=== PATIENT | female | born 1950 | race Caucasian/White ===

== ENCOUNTER 2017-09-04 07:34 | Emergency (ER) | payer OTHER ==
[2017-09-04 07:52] VITALS: BP 152/89
--- NOTE | 2017-09-04 09:21 | RAD ---
INDICATION: Left knee injury. TECHNIQUE: 4 views of the left knee were obtained. FINDINGS: The bones are normal alignment. There is a small joint effusion present. No fracture is seen. Joint spaces appear maintained. IMPRESSION: SMALL JOINT EFFUSION, OTHERWISE UNREMARKABLE STUDY.
--- NOTE | 2017-09-04 13:01 | UC ---
Fede Bloom Natalie, scribed for Bree Banerjee MD on 09/04/17 at 0952 . Knee Pain HPI - HPI Summary HPI Summary: The patient is a 66 y/o F presenting to [facility] c/o pain and swelling in the left knee starting three days ago. The day previous to her symptoms starting she did a lot of walking at the [place] [employer]. She woke up the next morning on 09/02 with aching pain in her knee, which she rates 8/10 in severity. She denies locking and giving out of the knee joint. The pain is aggravated by ambulation and extension is alleviated by rest. She has taken Tylenol to some relief. She has not gotten any XRs taken, and she has not gone to PT because she hasn't had pain like this in her knee before. She denies any recent or past tick bites. She takes omeprazole for gastritis. She has hx of adenocarcincoma. She has surgical hx of a tonsillectomy. She does not have any allergies. - History of Current Complaint Chief Complaint: UCLowerExtremity Stated Complaint: KNEE PAIN Time Seen by Provider: 09/04/17 08:29 Hx Obtained From: Patient Onset/Duration: Sudden Onset, Lasting Days - since 09/01, Still Present Severity Initially: Mild Severity Currently: Moderate Pain Intensity: 8 Pain Scale Used: 0-10 Numeric Character: Aching Aggravating Factor(s): Other - ambulation and extension Alleviating Factor(s): Rest Associated Signs And Symptoms: Positive: Swelling Able to Bear Weight: Yes - Allergies/Home Medications Allergies/Adverse Reactions: Allergies Allergy/AdvReac Type Severity Reaction Status Date / Time No Known Allergies Allergy Verified 09/04/17 07:52 PMH/Surg Hx/FS Hx/Imm Hx Other Endocrine History: NEGATIVE: diabetes Other Cardiovascular History: negative Other Respiratory History: negative Other GI/ History: adenocarcinoma, gastritis Other Neurological History: negative Other Psychological History: negative Cancer History: Other - gastric cancer Other Cancer History: gastric cancer - Surgical History Surgical History: Yes Surgery Procedure, Year, and Place: tonsils - Family History Known Family History: Positive: Hypertension - Social History Alcohol Use: Weekly Substance Use Type: None Smoking Status (MU): Former Smoker Have You Smoked in the Last Year: No When Did the Patient Quit Smoking/Using Tobacco: over 30 yrs ago - Immunization History Most Recent Tetanus Shot: uncertain Review of Systems Skin: Negative Eyes: Negative ENT: Negative Respiratory: Negative Cardiovascular: Negative, Other - NEGATIVE: CP Gastrointestinal: Negative Genitourinary: Negative Motor: Decreased ROM - left knee Musculoskeletal: Arthralgia - left knee, Other: - POSITIVE: pain in left knee with swelling Neurological: Negative Psychological: Negative Is Patient Immunocompromised?: No All Other Systems Reviewed And Are Negative: Yes Physical Exam - Summary Physical Exam Summary: Appearance: Well-Appearing, No Pain Distress, Well-Nourished Eyes: conjunctiva clear, no discharge ENT: Hearing grossly normal, no muffled/hoarse voice. Neck: Normal, Supple Respiratory/Lung Sounds: Lungs clear, Normal breath sounds, No respiratory distress, No accessory muscle use Cardiovascular: RRR, No murmur Abdomen: Nontender, Soft, no guarding, not distended Bowel Sounds: Present Musculoskeletal: slightly antalgic gait. Left knee: FROM in left knee with painful extension, medial joint line tenderness, mild effusion Gianna test could not be done due to patient's inability to relax. Anterior and posterior drawer test negative. pain with valgus stress at 30 deg. Neurological: Alert, muscle tone normal Psychiatric:Normal, age appropriate behavior Skin: Normal, Warm, Dry, Normal color Triage Information Reviewed: Yes Vital Signs: Initial Vital Signs Temp 98.2 F 09/04/17 07:48 Pulse 105 09/04/17 07:48 Resp 18 09/04/17 07:48 BP 152/89 09/04/17 07:48 Pulse Ox 99 09/04/17 07:48 Vital Signs Reviewed: Yes Diagnostics - Radiology Left Knee XR Xray Interpretation: No Acute Changes - Small joint effusion, otherwise unremarkable study. [facility] physician has reviewed this report. Radiology Interpretation Completed By: Radiologist Knee Pain Course/Dx - Course Course Of Treatment: The patient is a 66 y/o F presenting to [facility] c/o left knee pain and swelling starting three days ago after walking a lot the day before. She denies locking up and giving out of the knee. She has taken Tylenol for the pain with some relief. She has not had XRs or gone to PT for the knee pain. She has not had a recent tick pain. BP noted and advised to follow up with PCP. Medications reviewed. No allergies noted. In the [facility], Left Knee XR is negative for any fracture, and only mild effusion was visible. Patient will be discharged home with instructions for knee pain. She is advised to take Tylenol as needed and apply ice for 15 minutes at a time. She is advised to follow up with her PCP in 2 days and consult with orthopedist Dr. Roper for physical therapy. Patient is agreeable with this plan. - Differential Dx/Diagnosis Provider Diagnoses: knee pain. Left knee pain. Left knee arthritis Discharge - Sign-Out/Discharge Documenting (check all that apply): Discharge/Admit/Transfer - Pt will be discharged home. - Discharge Plan Condition: Stable Disposition: HOME Patient Education Materials: Knee Pain (ED) Referrals: Judson Wisdom MD [Medical Doctor] - 1 Week Reyna Vigil MD [Primary Care Provider] - 2 Weeks Additional Instructions: Tylenol for pain as needed. Ice as needed, 15 min at a time. Start physical therapy. Please follow up with orthopedics for the consult next week. Return to Urgent care / ER if symptoms get worse. - Billing Disposition and Condition Condition: STABLE Disposition: Home The documentation as recorded by the Fede howard Natalie accurately reflects the service I personally performed and the decisions made by , Bree Banerjee MD.
== END 2017-09-04 09:38 | disposition home or self-care (01) ==
LOC: UCEAST 07:34
DX: M13.862 Other specified arthritis, left knee (principal); M25.562 Pain in left knee; Z87.891 Personal history of nicotine dependence
CPT/HCPCS: 99211; G0463

== ENCOUNTER 2018-02-10 13:14 | Emergency (ER) | payer OTHER ==
[2018-02-10 13:23] VITALS: BP 158/94
--- NOTE | 2018-02-10 13:53 | UC ---
Ear Complaint HPI - HPI Summary HPI Summary: 67 y/o female presents to the urgent care c/o RT ear pain since yesterday. Pain is 8/10. Pt states she feels her ear is clogged w/ decrease hearing. Pt states Hx of recurrent ear infections in the past. Pt denies fever, tinnitus, dizziness, SOB, FRANCIS, chest pain, abdominal pain,N/V/d. Pt has Hx of GERD and can' t take NSAIDs - History of Current Complaint Chief Complaint: UCEar Stated Complaint: EAR PAIN Time Seen by Provider: 02/10/18 13:49 Hx Obtained From: Patient Onset/Duration: Gradual Onset, Lasting Days - 1 day, Still Present, Worse Since - today Severity Initially: Mild Severity Currently: Moderate Pain Intensity: 8 Pain Scale Used: 0-10 Numeric Aggravating Factors: Nothing Alleviating Factors: Nothing Associated Signs/Symptoms: Positive: Hearing Loss - Allergies/Home Medications Allergies/Adverse Reactions: Allergies Allergy/AdvReac Type Severity Reaction Status Date / Time No Known Allergies Allergy Verified 02/10/18 13:24 PMH/Surg Hx/FS Hx/Imm Hx Previously Healthy: Yes GI/ History: Gastroesophageal Reflux Other Cancer History: lymphoma - Surgical History Surgical History: Yes Surgery Procedure, Year, and Place: tonsils - Family History Known Family History: Positive: Hypertension - Social History Occupation: Retired Lives: With Family Alcohol Use: Weekly Substance Use Type: None Smoking Status (MU): Former Smoker Have You Smoked in the Last Year: No When Did the Patient Quit Smoking/Using Tobacco: over 30 yrs ago - Immunization History Most Recent Tetanus Shot: uncertain Review of Systems All Other Systems Reviewed And Are Negative: Yes Constitutional: Positive: Negative Skin: Positive: Negative Eyes: Positive: Negative ENT: Positive: Ear Ache - RT ear pain Respiratory: Positive: Negative Cardiovascular: Positive: Negative Gastrointestinal: Positive: Negative Genitourinary: Positive: Negative Motor: Positive: Negative Neurovascular: Positive: Negative Musculoskeletal: Positive: Negative Neurological: Positive: Negative Psychological: Positive: Negative Is Patient Immunocompromised?: No Physical Exam - Summary Physical Exam Summary: Vital signs: reviewed General: well developed, well nourished female sitting in the examining table w/ o any apparent distress Skin: [place], warm and dry, no evidence of atopic dermatitis, psoriasis, seborrhea. HEENT: -Head: atraumatic, non tender; no scalp dermatitis. -Eyes: sclera and conjunctiva clear, PERRLA, EOMI -Ears: no pre- or postauricular lymphadenopathy or erythema; RT external ear canal clear, Rt TM injected w/ erythema and yellowish discahrge, LF external ear canal clear and LF TM WNL. No perforation. -Nose/Face: erythematous and edematous nasal mucosa with clear rhinorrhea, no frontal or maxillary sinus tender to palpation. -Mouth/Throat: Mucous membrane moist, posterior pharynx clear, no erythema or exudates. Neck: supple, FROM, nontender, no lymphadenopathy, no meningismus. Chest: Clear to auscultation, normal breath sounds Abd: soft, Bowel sounds active, Nontender. Back: no spinal or CVAT Neuro: A&O x4, GCS 15, no focal neuro deficits, normal behavior for age. Triage Information Reviewed: Yes Vital Signs: Initial Vital Signs Temp 98.5 F 02/10/18 13:21 Pulse 96 02/10/18 13:21 Resp 16 02/10/18 13:21 BP 158/94 02/10/18 13:21 Pulse Ox 99 02/10/18 13:21 Ear Complaint Course/Dx - Course Course Of Treatment: 67 y/o female presents to the urgent care c/o RT ear pain since yesterday. Pain is 8/10. Pt states she feels her ear is clogged w/ decrease hearing. Pt states Hx of recurrent ear infections in the past. Pt denies fever, tinnitus, dizziness, SOB, FRANCIS, chest pain, abdominal pain,N/V/d. Pt has Hx of GERD and can't take NSAIDs. Hx obtained. Pt w/ RT otitis media on examination. Pt given Tylenol PO by the nurse to alleviate symptoms. Pt Rx Amoxicillin PO and Tylenol as directed below. If symptoms do not improve or worsen to return to the urgent care or f/u with PCP for further management.Pt's BP is elevated today advised to decrease salt in diet, monitor BP and f/u with PCP for further management. PT understood and agreed with D/C instructions. - Differential Dx/Diagnosis Differential Diagnosis/HQI/PQRI: Cerumen Impaction, Otitis Externa, Otitis Media , Perforated TM, URI Provider Diagnosis: Right otitis media, Otalgia, Elevated BP without diagnosis of hypertension Discharge - Sign-Out/Discharge Documenting (check all that apply): Patient Departure - d/c home All imaging exams completed and their final reports reviewed: No Studies - Discharge Plan Condition: Stable Disposition: HOME Prescriptions: Acetaminophen TAB* [Tylenol TAB*] 650 mg PO Q6H PRN #30 tab PRN Reason: otalgia Amoxicillin PO (*) [Amoxicillin 875 MG (*)] 875 mg PO BID #14 tab Patient Education Materials: Ear Infection (ED), Low-Sodium Diet (ED) Referrals: Reyna Vigil MD [Primary Care Provider] - 3 Days Additional Instructions: 1- Please take the full course of the antibiotic to avoid resistance. Please take yogurts w/ probiotics to protect your GI system 2-Please take Tylenol PO q6-8hrs prn as instructed after meals to alleviate pain and swelling. Increase fluid intake, eat well, rest and avoid strenuous exercise 3-If symptoms do not improve or worsen please return to the urgent care or f/u with your PCP in 3 days for further evaluation and treatment. 4- Your BP is elevated today. please decrease salt in your diet, monitor BP and if it continues to be elevated please f/u with your PCP for further management - Billing Disposition and Condition Condition: STABLE Disposition: Home
[2018-02-10] MEDS ORDERED: Acetaminophen TAB* 325 MG PO ONE (13:58)
== END 2018-02-10 14:12 | disposition home or self-care (01) ==
LOC: UCEAST 13:14
DX: H66.91 Otitis media, unspecified, right ear (principal); H92.01 Otalgia, right ear; R03.0 Elevated blood-pressure reading, without diagnosis of hypertension; Z87.891 Personal history of nicotine dependence
CPT/HCPCS: 99212; A9270-GY; G0463

== ENCOUNTER 2022-09-29 11:56 | Observation (INO) ==
[2022-09-29 13:19] LABS: ABS Basophils 0.1 10^3/uL (0.0-0.1); ABS Eosinophils 0.1 10^3/uL (0.0-0.5); ABS Lymphocytes 0.2 10^3/uL (1.0-4.8); ABS Neutrophils 7.8 10^3/uL (1.5-7.6); ABS Nucleated RBC 0.01 10^3/ul; Eosinophil % 0.6 %; Hematocrit 28.7 % (35-45); Lymphocyte % 2.1 %; Mean Corpuscular Hemoglobin 35.3 pg (27-33); Mean Corpuscular Volume 100.8 fL (80-97); Mean Platelet Volume 7.8 fL (7.5-11.2); Nucleated Red Blood Cells % 0.1 /100 WBC (0.0-0.4); Platelet Count 257 10^3/uL (150-450); Red Blood Count 2.84 10^6/uL (3.63-4.92); White Blood Count 9.1 10^3/uL (3.8-11.8)
[2022-09-29 13:22] LABS: Venous Bicarbonate HCO3 23.9 mmol/L (24-28)
[2022-09-29 13:33] LABS: Activated Partial Thrombo Time 26.9 seconds (26.0-38.0); INR 1.21 (0.88-1.18)
[2022-09-29 13:37] LABS: Albumin 2.7 g/dL (3.2-5.2); Albumin/Globulin Ratio 1.4 (1-3); C Reactive Protein 43.86 mg/L (<8.01); Creatinine, Serum 0.84 mg/dL (0.51-0.95); Globulin 1.9 g/dL (2-4); Magnesium 1.2 mg/dL (1.9-2.7); Potassium 3.4 mmol/L (3.5-5.0); Total Bilirubin 0.5 mg/dL (0.2-1.0); Total Protein 4.6 g/dL (6.4-8.9); eGFR CKD-EPI 74.2 (>60)
[2022-09-29] MEDS ORDERED: Iohexol 350 (CONTRAST) 500 ML MDV IV ONE (14:11)
[2022-09-29] MEDS ORDERED: Magnesium Sulf 4 GM/100 ML IV 4,000 MG/100 ML BAG IVPB ONE (14:13)
[2022-09-29 14:21] LABS: Urine Appearance Clear; Urine Bilirubin Negative (Negative); Urine Blood Negative (Negative); Urine Color Yellow; Urine Glucose Negative (Negative); Urine Ketones Negative (Negative); Urine Nitrite Negative (Negative); Urine Protein Negative (Negative); Urine Specific Gravity 1.016 (1.002-1.030); Urine Urobilinogen Negative (Negative)
[2022-09-29 14:46] LABS: High Sensitivity Troponin 1 Hr 111 pg/mL (<15)
[2022-09-29] MEDS ORDERED: Piperacillin/Tazobac 3.375 BAG 3.375 GM/100 ML BAG IV ONE (17:06)
[2022-09-29] MEDS ORDERED: Furosemide 20 mg/2 ml IV VIAL IV SLOW PU ONE (17:08)
[2022-09-29] MEDS ORDERED: Al Hydrox/Mg Hydrox/Simet LIQ 30 ML UDC PO PRN (17:11)
[2022-09-29] MEDS ORDERED: Morphine ORAL CONCENTRATE 5 MG/0.25 ML ORAL.SYRIN PO PRN (17:11)
[2022-09-29] MEDS ORDERED: Triamcinolone 0.5% OINT 1 TUBE TOPICAL PRN (17:36)
[2022-09-29] MEDS ORDERED: Zosyn per Pharmacy NOTE FOLLOW UP SCH (18:00)
[2022-09-29] MEDS: Enoxaparin 40 MG/0.4 ML SYR SUBCUT SCH (18:28)
[2022-09-29] MEDS: Azithromycin 500 mg/250 ml NS 500 MG/250 ML BAG IVPB SCH (18:28)
[2022-09-29] MEDS: ZOSYN 3.375 GM Q8H per EXTENDED INFUSION IV SCH (22:29)
[2022-09-30] MEDS: ZOSYN 3.375 GM Q8H per EXTENDED INFUSION IV SCH ×3 (05:53→22:07)
[2022-09-30 06:09] LABS: ABS Basophils 0.1 10^3/uL (0.0-0.1); ABS Eosinophils 0.1 10^3/uL (0.0-0.5); ABS Lymphocytes 0.2 10^3/uL (1.0-4.8); ABS Monocytes 1.1 10^3/uL (0.0-0.9); ABS Neutrophils 6.5 10^3/uL (1.5-7.6); ABS Nucleated RBC 0.01 10^3/ul; Eosinophil % 1.3 %; Hematocrit 25.3 % (35-45); Hemoglobin 9.1 g/dL (11.5-14.3); Lymphocyte % 2.4 %; Mean Corpuscular Volume 99.9 fL (80-97); Mean Platelet Volume 7.7 fL (7.5-11.2); Nucleated Red Blood Cells % 0.1 /100 WBC (0.0-0.4); Platelet Count 264 10^3/uL (150-450); Red Blood Count 2.53 10^6/uL (3.63-4.92); Red Cell Distribution Width 17.9 % (12-17)
[2022-09-30 06:30] LABS: Calcium 9.1 mg/dL (8.6-10.3); Creatinine, Serum 0.91 mg/dL (0.51-0.95); Magnesium 1.7 mg/dL (1.9-2.7); Potassium 3.2 mmol/L (3.5-5.0); eGFR CKD-EPI 67.4 (>60)
[2022-09-30] MEDS ORDERED: Magnesium Sulfate 2 gm BAG 2 GM/50 ML BAG IVPB ONE (10:18)
[2022-09-30] MEDS ORDERED: Potassium Chlor 20 meq TAB.ER PO ONE (10:20)
[2022-09-30] MEDS ORDERED: Furosemide 20 mg/2 ml IV VIAL IV SLOW PU ONE (10:57)
[2022-09-30 11:38] LABS: Total Protein 4.2 g/dL (6.4-8.9)
[2022-09-30 15:58] LABS: Body Fluid Appearance Cloudy; Body Fluid Color Yellow; Body Fluid Source Pleural Fluid
[2022-09-30 16:21] LABS: Body Fluid WBC 840 /mcL
[2022-09-30 16:52] LABS: Body Fluid Mono 16 %; Body Fluid Other Cells 44; Body Fluid Total Cells Counted 200
[2022-09-30] MEDS: Enoxaparin 40 MG/0.4 ML SYR SUBCUT SCH (17:38)
[2022-09-30] MEDS: Azithromycin 500 mg/250 ml NS 500 MG/250 ML BAG IVPB SCH (19:36)
[2022-10-01] MEDS: ZOSYN 3.375 GM Q8H per EXTENDED INFUSION IV SCH (05:58)
[2022-10-01 06:10] LABS: ABS Basophils 0.1 10^3/uL (0.0-0.1); ABS Eosinophils 0.1 10^3/uL (0.0-0.5); ABS Lymphocytes 0.3 10^3/uL (1.0-4.8); ABS Monocytes 1.1 10^3/uL (0.0-0.9); ABS Neutrophils 6.4 10^3/uL (1.5-7.6); Eosinophil % 1.8 %; Hematocrit 24.9 % (35-45); Hemoglobin 8.9 g/dL (11.5-14.3); Lymphocyte % 3.5 %; Mean Corpuscular Hemoglobin 35.7 pg (27-33); Mean Corpuscular Hgb Conc 35.6 g/dL (31-36); Mean Platelet Volume 7.2 fL (7.5-11.2); Nucleated Red Blood Cells % 0.1 /100 WBC (0.0-0.4); Platelet Count 269 10^3/uL (150-450); Red Blood Count 2.49 10^6/uL (3.63-4.92); Red Cell Distribution Width 17.9 % (12-17)
[2022-10-01 06:26] LABS: Calcium 8.8 mg/dL (8.6-10.3); Creatinine, Serum 1.03 mg/dL (0.51-0.95); Magnesium 1.6 mg/dL (1.9-2.7); Potassium 3.3 mmol/L (3.5-5.0); eGFR CKD-EPI 58.1 (>60)
[2022-10-01] MEDS ORDERED: Furosemide 20 mg/2 ml IV VIAL IV SLOW PU ONE (10:17)
[2022-10-01] MEDS ORDERED: Potassium Chlor 20 meq TAB.ER PO ONE ×2 (10:18→13:00)
[2022-10-01] MEDS ORDERED: Magnesium Sulf 4 GM/100 ML IV 4,000 MG/100 ML BAG IVPB ONE (10:19)
[2022-10-01 14:06] VITALS: BP 109/69
[2022-10-02 12:08] LABS: Fluid Type, Protein, Total PLEURAL; Total Protein, BF 2.3 g/dL
[2022-10-02 13:29] LABS: Lactate Dehydrogenase, BF 205 U/L
== END 2022-10-01 15:00 | disposition home or self-care (01) ==
LOC: ED 11:56 → EDHOLD 11:56 → SUATTDRO 14:24 → MED 16:32
PROVIDERS: ADMIT Internal Medicine; ATTEND Hospitalist